=== PATIENT | male | born 1980 | race African-American/Black ===

== ENCOUNTER 2021-07-18 13:10 | Emergency (ER) | payer BC, OTHER ==
[2021-07-18 13:22] VITALS: BP 153/99; PULSE 75; TEMP 98.5; BMI 43.8
== END 2021-07-18 16:00 | disposition home or self-care (01) ==
LOC: JER 13:10
DX: M94.0 Chondrocostal junction syndrome [Tietze] (principal)
CPT/HCPCS: 71101-TC-LT-FY; 99283-25

== ENCOUNTER 2022-12-28 11:47 | Emergency (ER) | payer OTHER ==
[2022-12-28 12:00] VITALS: BP 126/78; PULSE 75; RESP 18; TEMP 98; BMI 43.4
[2022-12-28] MEDS ORDERED: LACTATED RINGERS SOLUTION 1000 ML INFUS.BAG IV ONE (14:45)
[2022-12-28 15:48] LABS: EOS % 2.8 % (0-4.5); HEMATOCRIT 44.7 % (35.4-49); HEMOGLOBIN 14.4 GM/dL (11.7-16.9); LYMPH % 25.9 % (8-40); MCH 27.6 pg (25.7-33.7); MCHC 32.3 g/dl (32.0-35.9); MEAN CELL VOLUME 85.5 fl (80-96); MEAN PLT VOLUME 7.7 fl (7.5-11.1); MONO % 8.6 % (3.8-10.2); NEUT % 61.7 % (42.8-82.8); PLATELET COUNT 446 10^3/uL (134-434); RBC 5.23 M/mm3 (4.00-5.60); RDW 17.4 % (11.9-15.9); WHITE BLOOD COUNT 7.7 K/mm3 (4.0-10.0)
[2022-12-28 16:10] LABS: POTASSIUM 4.2 mmol/L (3.5-5.1)
[2022-12-28 16:12] LABS: CALCIUM 8.9 mg/dL (8.5-10.1)
[2022-12-28 16:13] LABS: ALBUMIN 3.4 g/dl (3.4-5.0); BLOOD UREA NITROGEN 10.4 mg/dL (7-18)
[2022-12-28 16:16] LABS: CREATININE 1.2 mg/dL (0.55-1.3)
[2022-12-28 16:17] LABS: TOT PROT 8.2 g/dl (6.4-8.2)
[2022-12-28 16:18] LABS: BILIRUBIN,TOTAL 0.5 mg/dL (0.2-1)
== END 2022-12-28 16:54 | disposition home or self-care (01) ==
LOC: JER 11:47
DX: R42 Dizziness and giddiness (principal); R11.0 Nausea; H53.8 Other visual disturbances; I49.9 Cardiac arrhythmia, unspecified; Z20.822 Contact with and (suspected) exposure to COVID-19
CPT/HCPCS: 0241U-QW; 36415; 71046-TC-FY; 80053; 82962; 84439; 84443; 84484; 85025; 93005; 93010; 99285-25

== ENCOUNTER 2023-12-06 10:09 | Emergency (ER) | payer OTHER ==
[2023-12-06 10:24] VITALS: BP 123/85; PULSE 87; RESP 18; TEMP 98.8; BMI 44.3
[2023-12-06] MEDS ORDERED: IBUPROFEN 400 MG TABLET (FP) PO ONE (11:11)
[2023-12-06] MEDS: IBUPROFEN 400 MG TABLET (FP) PO ONE (11:12)
== END 2023-12-06 12:34 | disposition home or self-care (01) ==
LOC: JERFT 10:09
DX: S96.911A Strain of unspecified muscle and tendon at ankle and foot level, right foot, initial encounter (principal); X50.1XXA Overexertion from prolonged static or awkward postures, initial encounter; Y93.01 Activity, walking, marching and hiking
CPT/HCPCS: 73610-TC-RT-FY; 73630-TC-RT-FY; 99283-25

== ENCOUNTER 2024-10-13 18:17 | Emergency (ER) | payer OTHER ==
[2024-10-13 18:27] VITALS: BP 112/56; PULSE 85; RESP 20; TEMP 97.9; BMI 46.2
[2024-10-13] MEDS ORDERED: ACETAMINOPHEN 500 MG TABLET (FP) ONE (19:12)
[2024-10-13] MEDS ORDERED: DEXAMETHASONE SOD PHOSPHATE 10 MG/1 ML VIAL ONE (19:12)
[2024-10-13] MEDS ORDERED: LIDOCAINE 4% PATCH TP ONE ×2 (19:13→20:39)
[2024-10-13] MEDS: LIDOCAINE 5% TOPICAL PATCH TP ONE ×2 (19:22→20:46)
[2024-10-13] MEDS: ACETAMINOPHEN 500 MG TABLET (FP) PO ONE (19:22)
[2024-10-13] MEDS: DEXAMETHASONE SOD PHOSPHATE 10 MG/1 ML VIAL IVPUSH ONE (19:22)
[2024-10-13] MEDS ORDERED: LIDOCAINE PATCH REMOVAL MC SCH ×2 (22:00)
== END 2024-10-13 20:47 | disposition home or self-care (01) ==
LOC: JERFT 18:17
PROC: 3E033GC Introduction of Other Therapeutic Substance into Peripheral Vein, Percutaneous Approach (ICD-10-PCS; principal; 2024-10-13)
DX: M54.50 Low back pain, unspecified (principal); G89.29 Other chronic pain
CPT/HCPCS: 99284-25; J1100